=== PATIENT | female | born 1990 | race Caucasian/White ===

== ENCOUNTER 2017-09-04 15:31 | Emergency (ER) | payer MEDICAID ==
[2017-09-04 16:06] LABS: APPEARANCE TURBID (CLEAR); BILIRUBIN NEGATIVE (NEGATIVE); COLOR YELLOW (YELLOW); GLUCOSE NEGATIVE (NEGATIVE); KETONE NEGATIVE (NEGATIVE); NITRITE NEGATIVE (NEGATIVE); PROTEIN NEGATIVE (NEGATIVE); SPECIFIC GRAVITY 1.025 (1.005-1.020); UROBILINOGEN NORMAL (NORMAL)
[2017-09-04 16:10] LABS: BACTERIA MODERATE /hpf (NONE SEEN); MUCUS >1+ /lpf (NONE SEEN); RED CELLS - URINE 0-5 /hpf (0-5)
== END 2017-09-04 17:25 | disposition home or self-care (01) ==
LOC: D.ER 15:31
PROVIDERS: Emergency Medicine
DX: N39.0 Urinary tract infection, site not specified (principal); N76.0 Acute vaginitis

== ENCOUNTER 2017-11-21 12:55 | Emergency (ER) | payer MEDICAID | END 2017-11-21 16:05 | disposition home or self-care (01) | LOC: D.ER 12:55 | DX: S69.92XA Unspecified injury of left wrist, hand and finger(s), initial encounter (principal); X58.XXXA Exposure to other specified factors, initial encounter; Y93.89 Activity, other specified; Y92.89 Other specified places as the place of occurrence of the external cause; F17.200 Nicotine dependence, unspecified, uncomplicated ==

== ENCOUNTER 2017-11-29 13:52 | Emergency (ER) | payer MEDICAID | END 2017-11-29 16:10 | disposition home or self-care (01) | LOC: D.ER 13:52 | DX: S69.91XA Unspecified injury of right wrist, hand and finger(s), initial encounter (principal); W23.0XXA Caught, crushed, jammed, or pinched between moving objects, initial encounter; Y93.89 Activity, other specified; Y92.89 Other specified places as the place of occurrence of the external cause; M79.641 Pain in right hand; F17.200 Nicotine dependence, unspecified, uncomplicated ==

== ENCOUNTER 2018-03-06 06:24 | Day surgery (SDC) | payer OTHER ==
[~2018-03-06] VITALS: Ht 157.5 cm; Wt 59.0 kg
--- NOTE | ~2018-03-06 | HP ---
PATIENT: ASHLI SAUL MEDICAL RECORD: [id number] ACCOUNT: [id number] LOCATION:[facility] : 88 ADMISSION DATE: 03/06/18 HISTORY AND PHYSICAL EXAMINATION HISTORY OF PRESENT ILLNESS: Ashli is a 27-year-old. She has had persistent problems with recurrent pharyngitis and large tonsilliths. She is being admitted for tonsillectomy and adenoidectomy. PAST MEDICAL HISTORY: Otherwise negative. PAST SURGICAL HISTORY: None. CURRENT MEDICATIONS: Alprazolam. ALLERGIES: No known drug allergies. PHYSICAL EXAMINATION: GENERAL: She is healthy-appearing, good historian, developmentally normal. FACE: Normal, symmetric, no lesions. EYES: Sclerae and conjunctivae are normal. EARS: Canals and TMs are normal. NOSE: No mass, polyps, or drainage. ORAL CAVITY AND OROPHARYNX: 3-4+ tonsils with large pockets and tonsilliths superiorly with some bloody and granular changes around those chronically infected crypts. CHEST: Clear. CARDIOVASCULAR: Regular rate and rhythm, no murmur. EXTREMITIES: Normal. IMPRESSION: Chronic caseous tonsillitis and pharyngitis. PLAN: Tonsillectomy and adenoidectomy. TRANSINT:[id number] Voice Confirmation ID: [id number] DOCUMENT ID: [id number] ANDREI VEE MD at 1357 CC: [id number] DICTATION DATE: 03/03/18 1007 MUSIC MANAGER: 03/03/18 1015 [facility] [address] [place] [address]
--- NOTE | ~2018-03-06 | OP ---
PATIENT NAME: RENE SAUL MEDICAL RECORD: [id number] :88 LOCATION:[facility] ADMISSION DATE: SURGEON: ANDREI LOPEZ MD DATE OF OPERATION: 03/06/2018 PREOPERATIVE DIAGNOSIS: Chronic pharyngitis. POSTOPERATIVE DIAGNOSIS: Chronic pharyngitis. PROCEDURE: Tonsillectomy and adenoidectomy. SURGEON: Andrei Lopez MD ANESTHESIA: General orotracheal. BLOOD LOSS: Less than 5 cc. SPECIMENS: Right and left tonsil. COMPLICATIONS: None. DISPOSITION: Recovery stable. FINDINGS: A tremendous amount of tonsils with caseous material on both tonsils. DESCRIPTION OF PROCEDURE: She was brought to the operating room and placed in supine position, sedated and intubated by anesthesia. The eyes were taped. Table was turned 90 degrees. Head drapes applied. She was positioned for tonsillectomy. Using a headlight, a Jg-Juan mouth gag was carefully inserted and elevated on a towel on her chest. The palate was examined and palpated was normal. A red rubber catheter was placed to the right side of the Nose and pharynx and grasped with tonsillar clamp to retract the soft palate. Using a mirror, the nasopharynx was examined. Suction cautery on a setting of 35 was used to ablate and suction the adenoid pad with no significant bleeding. The choanae and eustachian orifices were normal bilaterally. The red rubber catheter was let down and removed. The right tonsil was grasped at the superior pole with a straight Allis clamp and a tremendous amount of caseous material extruded. Spatula tip cautery on a setting of 9 was used to dissect out the tonsil along its capsule, preserving the anterior and posterior tonsillar pillar. The left tonsil was removed in the same fashion. Then, both sides of the nose were irrigated with saline. The pharynx was suctioned. Tonsillar fossae were agitated. Suction cautery on a setting of 20 was used to control minimal oozing. With the field clean and dry, she was awakened, extubated, and transported to recovery in good condition. No complications. TRANSINT:[id number] Voice Confirmation ID: [id number] DOCUMENT ID: [id number] OPERATIVE REPORT [id number] RENE SAUL ANDREI LOPEZ MD at 1729 CC: [id number] DICTATION DATE: 03/06/18 1009 COSMETIC CHEMIST: 03/06/18 1130 [facility] 03/06/18 [place] [id number] [place] [address]
[~2018-03-06 06:24] MED LIST: XANAX1 MG PO
[2018-03-06 07:13] VITALS: BP 103/55; Ht 157.5 cm; Wt 59.0 kg
[2018-03-06 07:35] LABS: HCG URINE NEGATIVE (NEGATIVE)
[2018-03-06 08:15] LABS: HEMATOCRIT 41.1 % (36.0-48.0); MCH 29.1 pg (26.0-34.0); MCHC 34.1 g/dL (31.0-37.0); MCV 85.4 fL (80.0-100.0); MEAN PLATELET VOLUME 10.3 fL (7.4-10.4); RBC 4.81 10x6/uL (4.00-5.40); RDW 13.4 % (11.5-14.5); WBC 8.7 10x3/uL (4.8-10.8)
== END 2018-03-06 11:50 | disposition home or self-care (01) ==
LOC: D.OPS 06:24 → D.PAN 11:30 → D.OPS 11:50
PROVIDERS: Anesthesiology; Otolaryngology
DX: J31.2 Chronic pharyngitis (principal); Z01.812 Encounter for preprocedural laboratory examination; F17.200 Nicotine dependence, unspecified, uncomplicated; K21.9 Gastro-esophageal reflux disease without esophagitis

== ENCOUNTER 2018-06-21 11:20 | Emergency (ER) | payer OTHER ==
[~2018-06-21] VITALS: Ht 157.5 cm; Wt 59.1 kg
[2018-06-21 11:26] VITALS: BP 131/78; Ht 157.5 cm; Wt 59.1 kg
[2018-06-21] MEDS ORDERED: AMOXICILLIN875 MG PO (11:27)
[2018-06-21 13:01] LABS: HCG URINE NEGATIVE (NEGATIVE)
[2018-06-21] MEDS ORDERED: FLUTICASONE PRO16 GM NASAL (15:36)
[2018-06-21] MEDS ORDERED: LEVAQUIN750 MG PO (15:36)
== END 2018-06-21 15:49 | disposition home or self-care (01) ==
LOC: D.ER 11:20
PROVIDERS: Family Medicine
DX: J01.90 Acute sinusitis, unspecified (principal); F17.200 Nicotine dependence, unspecified, uncomplicated